=== PATIENT | female | born 1950 | race Two or more races ===

== ENCOUNTER 2017-01-10 11:07 | Emergency (ER) | payer OTHER, MEDICAID ==
[2017-01-10 11:31] VITALS: BP 124/83; PULSE 74; RESP 16; TEMP 97.3; O2SAT 98
== END 2017-01-10 11:18 | disposition left against medical advice (07) ==
DX: Z53.21 Procedure and treatment not carried out due to patient leaving prior to being seen by health care provider (principal)

== ENCOUNTER 2017-01-11 10:42 | Emergency (ER) | payer OTHER, MEDICAID ==
[2017-01-11 10:57] VITALS: BP 109/73; PULSE 76; RESP 16; TEMP 97.7; O2SAT 98
== END 2017-01-11 11:19 | disposition left against medical advice (07) ==
DX: Z53.21 Procedure and treatment not carried out due to patient leaving prior to being seen by health care provider (principal)

== ENCOUNTER 2017-02-02 01:36 | Emergency (ER) | payer OTHER, MEDICAID ==
--- NOTE | 2017-02-02 01:41 | EDPHY ---
H & P HPI/ROS: HPI CHIEF COMPLAINT: Right upper lip swelling, pruritus and edema HISTORY OF PRESENT ILLNESS: This patient very pleasant 66-year-old female, denies having any significant medical history does not take any daily medications she presents emergency room with approximately an hour prior to arrival she developed some right upper lip swelling pruritus and edema. She denies any tongue swelling or trouble swallowing she denies any shortness of breath or rash anywhere. She states she had chicken wings earlier in the evening. Does not recall anything causing her to have a reaction. She decided come the emergency room because of the itchiness of her right upper lip and swelling. Feels unusual for her. She denies any headache, neck pain or trouble swallowing. This just started approximately an hour ago. She has never had this before. No history of angioedema or allergic reaction except a rash. She denies new medications or exposures that she can think of. Patient denies dental pain. Past Medical History: No medical history Past Surgical History: Denies any recent surgery Social History: Denies daily use of drugs alcohol tobacco products Family History: Noncontributory ROS REVIEW OF SYSTEMS: A comprehensive 10 point review of systems is otherwise negative aside from elements mentioned in the history of present illness. Exam Constitutional triage nursing summary reviewed, vital signs reviewed, awake/ alert. Eyes normal conjunctivae and sclera, EOMI, PERRLA. HENT oropharynx: Uvula midline, tongue normal, no signs of Ian's, very mild edema to the right upper lip. No impressive swelling on exam. Patient tells me this itches. No facial droop. normal inspection, atraumatic, moist mucus membranes, no epistaxis, neck supple/ no meningismus, no raccoon eyes. Respiratory clear to auscultation bilaterally, normal breath sounds, no respiratory distress, no wheezing. Cardiovascular rate normal, regular rhythm, no murmur, no edema, distal pulses normal. Gastrointestinal soft, non-tender, no rebound, no guarding, normal bowel sounds, no distension, no pulsatile mass. Genitourinary no CVA tenderness. Musculoskeletal no midline vertebral tenderness, full range of motion, no calf swelling, no tenderness of extremities, no meningismus, good pulses, neurovascularly intact. Skin pink, warm, & dry, no rash, skin atraumatic. Neurologic awake, alert and oriented x 3, AAOx3, moves all 4 extremities equally, motor intact, sensory intact, CN II-XII intact, normal cerebellar, normal vision, normal speech. Psychiatric normal mood/affect. Heme/Lymph/Immune no lymphadenopathy. Differential Diagnosis: Includes but is not limited to in a particular order allergic reaction, angioedema, dental infection Medical Decision Making: Plan for this patient oral prednisone, Zantac and Benadryl to see if this improves her symptoms watch her closely to make sure she does not have any progression of lip swelling. Re-evaluation: 0217AM: Re-evaluation at this time patient is walking throughout the emergency room requesting be discharged she tells me she feels much better. She states the pruritus in the right upper lip swelling has improved. She states she would like to be discharged from the emergency room. I explained to her that I seizure like to watch her little bit further she has only been here for brief period of time however she has declined she wants to leave. I explained her that if she has recurrence of lip swelling, trouble swallowing, trouble breathing she should return emergency room she understands this. I will give her prescription for Benadryl, prednisone, Zantac for the next 3 days. Return if worsening symptoms. Source: Patient - Medical/Surgical History Hx Asthma: No Hx Chronic Respiratory Disease: No Hx Diabetes: No Hx Cardiac Disease: No Hx Renal Disease: No Hx Cirrhosis: No Hx Alcoholism: No Hx HIV/AIDS: No Hx Splenectomy or Spleen Trauma: No Other PMH: denies - Social History Smoking Status: Never smoked Constitutional: Initial Vital Signs Temperature (C) 36.5 C 02/02/17 01:40 Heart Rate 74 02/02/17 01:40 Respiratory Rate 16 02/02/17 01:40 Blood Pressure 143/56 H 02/02/17 01:40 O2 Sat (%) 96 02/02/17 01:40 O2 Delivery Mode Room Air Allergies/Adverse Reactions: No Known Allergies Allergy (Verified 02/02/17 01:47) Home Medications: Medication Instructions Recorded Levothyroxine [Synthroid 75 mcg 75 mcg PO DAILY06 02/02/17 (*)] Ranitidine HCl [Zantac] 150 mg PO DAILY #3 tablet 02/02/17 diphenhydrAMINE [Benadryl 25 MG 25 mg PO BID #6 tab 02/02/17 (*)] predniSONE 60 mg PO DAILY #9 tab 02/02/17 Departure - Departure Disposition: Home, Routine, Self-Care Clinical Impression: Allergic reaction Qualifiers: Encounter type: initial encounter Qualified Code(s): T78.40XA - Allergy, unspecified, initial encounter Condition: Good Instructions: Allergies (ED) Additional Instructions: 1. Return to the emergency room if develops any further swelling of her face trouble breathing trouble swallowing. Referrals: Bobbi García MD [Primary Care Provider] - As per Instructions Prescriptions: diphenhydrAMINE [Benadryl 25 MG (*)] 25 mg PO BID #6 tab predniSONE 60 mg PO DAILY #9 tab Ranitidine HCl [Zantac] 150 mg PO DAILY #3 tablet
[2017-02-02 01:47] VITALS: PULSE 74; RESP 16; TEMP 97.7; O2SAT 96
[2017-02-02 01:50] VITALS: BP 143/56
[2017-02-02] MEDS ORDERED: predniSONE 20 MG TAB PO ONE (01:52)
[2017-02-02] MEDS ORDERED: diphenhydrAMINE 25 MG CAP PO ONE (01:52)
[2017-02-02] MEDS ORDERED: RANITIDINE SYRUP 15 MG/1 ML UDSYR PO ONE (01:56)
[2017-02-02] MEDS ORDERED: RANITIDINE SYRUP 15 MG/1 ML UDSYR PO SCH (09:00)
== END 2017-02-02 02:19 | disposition home or self-care (01) ==
DX: T78.40XA Allergy, unspecified, initial encounter (principal)